=== PATIENT | male | born 1955 | race Caucasian/White ===

== ENCOUNTER 2021-10-26 17:03 | Observation (INO) | payer BC, MEDICARE ==
[~2021-10-26] VITALS: Ht 182.9 cm; Wt 131.5 kg
[~2021-10-26 17:03] MED LIST: ASPI-556 PO; ATOR10 PO; CETI10CA5 PO; DICL100T85 PO; OMEP20CA12 PO
[2021-10-26] MEDS ORDERED: ASPIRIN 325MG TAB PO ONE (20:30)
[2021-10-26] MEDS ORDERED: NITROGLYCERIN 1GM OINT 1 INCH/1GM TD ONE (20:30)
[2021-10-26 20:50] LABS: BASOPHILS % (AUTO) 0.4 % (0.0-5.0); EOSINOPHILS % (AUTO) 0.8 % (0.0-8.0); HEMATOCRIT 42.5 % (42-54); LYMPHOCYTES % (AUTO) 24.4 % (21.0-51.0); MEAN CORPUSCULAR HEMOGLOBIN 26.3 pg (27.0-33.0); MEAN CORPUSCULAR HGB CONC 31.5 g/dL (32.0-36.0); MEAN CORPUSCULAR VOLUME 83.5 fL (79-99); MONOCYTES % (AUTO) 8.7 % (3.0-13.0); NEUTROPHILS % (AUTO) 65.4 % (40.0-77.0); PLATELET COUNT (AUTO) 210 K/uL (130-400); RED BLOOD CELL COUNT(AUTO) 5.09 MIL/uL (4.50-6.20); WHITE BLOOD COUNT (AUTO) 7.4 K/uL (4.8-10.8)
[2021-10-26 21:07] LABS: CARBON DIOXIDE 33 mmol/L (21-32); CHLORIDE 100 mmol/L (101-111); CREATININE 0.9 mg/dL (0.5-1.5); GLOMERULAR FILTR. RATE CALC 89 mL/min (>60); GLUCOSE,RANDOM 102 mg/dL (70-105); POTASSIUM 4.1 mmol/L (3.5-5.1); SODIUM SERUM 139 mmol/L (136-145); UREA NITROGEN, BLOOD 18 mg/dL (7-18)
[2021-10-26 21:14] LABS: ALANINE AMINOTRANSFERASE 28 U/L (12-78); ALBUMIN 4.3 g/dL (3.5-5.0); ASPARTATE AMINOTRANSFERASE 20 U/L (10-37); BILIRUBIN,TOTAL 0.4 mg/dL (0.2-1.0); TOTAL PROTEIN, SERUM 7.8 g/dL (6.0-8.3)
[2021-10-26 21:17] LABS: CRP QUANTITATIVE < 2.00 mg/L (0.00-9.0)
[2021-10-26] MEDS ORDERED: MORPHINE 4 MG SYG IV PRN (22:00)
[2021-10-26] MEDS ORDERED: ACETAMINOPHEN 325 MG TAB PO PRN (22:00)
[2021-10-26] MEDS ORDERED: ONDANSETRON 4MG INJ IV PRN (22:00)
[2021-10-26] MEDS ORDERED: HYDROCODONE/ACETAMINOPHEN 5/325 MG TAB PO PRN (22:00)
[2021-10-26] MEDS: NITROGLYCERIN 1GM OINT 1 INCH/1GM TD SCH (22:00)
[2021-10-26 22:03] LABS: PROTHROMBIN TIME 10.9 SEC (9.6-11.6)
[2021-10-26 22:04] LABS: PARTIAL THROMBOPLASTIN TIME 29.5 SEC (26.3-35.5)
[2021-10-26] MEDS ORDERED: ATOR20TA65 PO (23:16)
[2021-10-26] MEDS ORDERED: TAMS-1 PO (23:17)
[2021-10-26] MEDS ORDERED: LOSA100T58 PO (23:18)
[2021-10-26] MEDS ORDERED: SERT-439 PO (23:19)
[2021-10-26] MEDS ORDERED: MONT-39 PO (23:21)
[2021-10-26] MEDS ORDERED: HYDR12.54 PO (23:21)
[2021-10-26 23:33] LABS: APPEARANCE,URINE CLEAR (CLEAR); BILIRUBIN,URINE NEGATIVE (NEGATIVE); COLOR,URINE YELLOW (YELLOW); GLUCOSE, URINE (UA) NEGATIVE (NEGATIVE); KETONES,URINE NEGATIVE (NEGATIVE); LEUKOCYTE ESTERASE ,URINE NEGATIVE (NEGATIVE); NITRATE,URINE NEGATIVE (NEGATIVE); OCCULT BLOOD,URINE NEGATIVE (NEGATIVE); PH,URINE 5.5 (5.0-8.0); PROTEIN,URINE NEGATIVE (NEGATIVE); UROBILINOGEN,URINE 0.2 mg/dL (0.2-1.0)
[2021-10-27 06:10] LABS: BASOPHILS % (AUTO) 0.6 % (0.0-5.0); EOSINOPHILS % (AUTO) 2.1 % (0.0-8.0); HEMATOCRIT 40.6 % (42-54); LYMPHOCYTES % (AUTO) 24.9 % (21.0-51.0); MEAN CORPUSCULAR HEMOGLOBIN 25.9 pg (27.0-33.0); MEAN CORPUSCULAR HGB CONC 31.5 g/dL (32.0-36.0); MONOCYTES % (AUTO) 9.6 % (3.0-13.0); NEUTROPHILS % (AUTO) 62.6 % (40.0-77.0); PLATELET COUNT (AUTO) 178 K/uL (130-400); RED BLOOD CELL COUNT(AUTO) 4.95 MIL/uL (4.50-6.20); RED CELL DISTRIBUTION WIDTH 13.9 % (11.0-15.5); WHITE BLOOD COUNT (AUTO) 5.3 K/uL (4.8-10.8)
[2021-10-27] MEDS: NITROGLYCERIN 1GM OINT 1 INCH/1GM TD SCH (06:19)
[2021-10-27 06:23] LABS: CREATININE 0.8 mg/dL (0.5-1.5); MAGNESIUM 1.9 mg/dL (1.80-2.40); PHOSPHORUS 4.1 mg/dL (2.5-4.9); POTASSIUM 3.6 mmol/L (3.5-5.1)
[2021-10-27] MEDS: ASPIRIN 81 MG EC TAB PO SCH (09:51)
[2021-10-27] MEDS: FAMOTIDINE 20MG VIAL IV SCH (09:53)
[2021-10-27] MEDS: ENOXAPARIN SODIUM 40 MG/0.4 ML SYRINGE SQ SCH (09:54)
[2021-10-27 10:26] LABS: THYROID STIMULATING HORMONE 1.56 uIU/mL (0.36-3.74)
[2021-10-27] MEDS: LOSARTAN 50 MG TABLET PO SCH ×2 (15:21→20:36)
[2021-10-27] MEDS ORDERED: TAMSULOSIN HCL 0.4 MG CAP.ER.24H PO SCH (21:00)
[2021-10-27] MEDS ORDERED: MONTELUKAST SODIUM 10 MG TAB PO SCH (21:00)
[2021-10-27] MEDS ORDERED: PANTOPRAZOLE 40 MG TAB DR PO SCH (21:00)
[2021-10-28 06:49] LABS: BASOPHILS % (AUTO) 0.3 % (0.0-5.0); EOSINOPHILS % (AUTO) 1.7 % (0.0-8.0); HEMATOCRIT 41.6 % (42-54); LYMPHOCYTES % (AUTO) 19.8 % (21.0-51.0); MEAN CORPUSCULAR HEMOGLOBIN 26.5 pg (27.0-33.0); MEAN CORPUSCULAR HGB CONC 31.7 g/dL (32.0-36.0); MEAN CORPUSCULAR VOLUME 83.4 fL (79-99); MONOCYTES % (AUTO) 8.9 % (3.0-13.0); NEUTROPHILS % (AUTO) 69.1 % (40.0-77.0); PLATELET COUNT (AUTO) 184 K/uL (130-400); RED BLOOD CELL COUNT(AUTO) 4.99 MIL/uL (4.50-6.20); RED CELL DISTRIBUTION WIDTH 14.2 % (11.0-15.5); WHITE BLOOD COUNT (AUTO) 5.8 K/uL (4.8-10.8)
[2021-10-28 06:56] LABS: CREATININE 0.8 mg/dL (0.5-1.5); POTASSIUM 4.1 mmol/L (3.5-5.1)
[2021-10-28] MEDS ORDERED: REGADENOSON 0.4 MG/5 ML PF SYG IVP SCH (08:30)
[2021-10-28] MEDS ORDERED: LOSARTAN 100 MG TABLET PO SCH (09:00)
[2021-10-28] MEDS ORDERED: ATORVASTATIN 20 MG TABLET PO SCH (09:00)
[2021-10-28] MEDS ORDERED: HYDROCHLOROTHIAZIDE 25 MG TABLET PO SCH (09:00)
[2021-10-28] MEDS ORDERED: SERTRALINE HCL 50 MG TABLET PO SCH (09:00)
[2021-10-28] MEDS: FAMOTIDINE 20MG VIAL IV SCH (10:25)
[2021-10-28] MEDS: ASPIRIN 81 MG EC TAB PO SCH (10:25)
[2021-10-28] MEDS: LOSARTAN 50 MG TABLET PO SCH (10:25)
[2021-10-28] MEDS: ENOXAPARIN SODIUM 40 MG/0.4 ML SYRINGE SQ SCH (10:33)
[2021-10-28 19:23] VITALS: BP 130/80
== END 2021-10-28 19:46 | disposition home or self-care (01) ==
LOC: EDH 17:03 → EDHIP 23:15
PROVIDERS: ADMIT Internal Medicine; ATTEND Internal Medicine
DX: R07.89 Other chest pain (principal); I24.9 Acute ischemic heart disease, unspecified; I10 Essential (primary) hypertension; E78.5 Hyperlipidemia, unspecified; K21.9 Gastro-esophageal reflux disease without esophagitis; E78.00 Pure hypercholesterolemia, unspecified; E66.9 Obesity, unspecified; Z79.82 Long term (current) use of aspirin; Z79.899 Other long term (current) drug therapy; Z87.891 Personal history of nicotine dependence
CPT/HCPCS: 36415 ×3; 71045; 78452; 80048 ×2; 80053; 80061; 81003; 83036; 83735 ×2; 84100; 84443; 84484 ×4; 85025 ×3; 85610; 85730; 86140; 93005; 93017; 96372 ×2; 96374; 96376; 99285; A9500 ×2; G0378 ×42; J1650 ×2; J2785; J3490 ×2

== ENCOUNTER → 2023-06-04 | Outpatient (CLI) | payer MEDICARE ==
[~2023-06-04] MED LIST changes: -ATOR10 PO; +ATOR20TA65 PO; -CETI10CA5 PO; -DICL100T85 PO; +HYDR12.54 PO; +LOSA100T59 PO; +MONT-39 PO; +SERT-439 PO; +TAMS-1 PO
== END | disposition home or self-care (01) ==
LOC: SHCH 14:24
PROVIDERS: ATTEND Internal Medicine Cardiovascular Disease
DX: I08.0 Rheumatic disorders of both mitral and aortic valves (principal); E78.5 Hyperlipidemia, unspecified; I11.9 Hypertensive heart disease without heart failure
CPT/HCPCS: 93306

== ENCOUNTER → 2025-07-14 | Emergency (ER) | payer MEDICARE ==
[~2025-07-14] VITALS: Ht 182.9 cm; Wt 131.5 kg
[~2025-07-14] MED LIST changes: -ASPI-556 PO; +ASPI-891 PO; +CYCL-309 PO; +FLUT16H NASAL; +GABA100C PO; +HYDR-4060 PO; -SERT-439 PO; +SERT-440 PO; -TAMS-1 PO; +TAMS-55 PO
--- NOTE | 2025-07-14 12:28 | HMCIMG ---
EXAM: CT Head Without IV contrast. CLINICAL HISTORY: CODE STROKE RIGHT SIDED WEAKNESS /T/ NUMBNRSS TECHNIQUE: Axial computed tomography images of the head/brain without intravenous contrast. COMPARISON: None provided. FINDINGS: BRAIN: No evidence of acute hemorrhage. No mass lesion. No CT evidence for acute territorial infarct. No midline shift or extra-axial collections. VENTRICLES: No hydrocephalus. ORBITS: The orbits are unremarkable. SINUSES AND MASTOIDS: The paranasal sinuses and mastoid air cells are clear. BONES: No fracture. SOFT TISSUES: Unremarkable. IMPRESSION: No acute intracranial abnormality. If there are concerns for an acute ischemic event, MRI brain with diffusion-weighted images may be useful for more complete evaluation. /[place]
--- NOTE | 2025-07-14 12:30 | EKG ---
[facility] Test Date: 2025-07-14 Test Time: 12:22:31 Pat Name: GUILLAUME WAYNE Department: ED Room: Gender: M [employer] Tester: [facility] : 1955 Requested By: ABIOLA PURCELL Order Number: [id number] Reading MD: Justin Adrian Measurements Intervals [place] Rate: 56 P: 36 OK: 275 QRS: -36 QRSD: 153 T: 17 QT: 466 QTc: 448 Interpretive Statements Sinus rhythm Prolonged OK interval Right bundle branch block Left ventricular hypertrophy Compared to ECG 07/11/2023 12:43:43 Right bundle-branch block now present Left ventricular hypertrophy now present Sinus bradycardia no longer present Electronically Signed On 07-15-2025 21:09:33 SOLUTION MANAGER by Justin Adrian Please click the below link to view image of tracing.
[2025-07-14 12:44] LABS: IMMATURE GRANULOCYTE ABSOLUTE 0.01 K/uL (0-1); NUCLEATED RED BLOOD CELLS 0.0 % (0.0-0.19); PLATELET COUNT (AUTO) 181 K/uL (130-400); RED BLOOD CELL COUNT(AUTO) 4.70 MIL/uL (4.50-6.20); RED CELL DISTRIBUTION WIDTH 14.1 % (11.0-15.5); WHITE BLOOD COUNT (AUTO) 5.6 K/uL (4.8-10.8)
[2025-07-14 12:54] LABS: CREATININE 0.8 mg/dL (0.5-1.3); GLOMERULAR FILTR. RATE CALC 94.0 mL/min (>90); GLUCOSE,RANDOM 81.0 mg/dL (70-105); SODIUM SERUM 137.0 mmol/L (136-145); UREA NITROGEN, BLOOD 16.0 mg/dL (7-18)
[2025-07-14 12:55] LABS: INR 1.03 (0.85-1.15)
--- NOTE | 2025-07-14 12:55 | ERN ---
General Chief Complaint: Stroke Symptoms Stated Complaint: STROKE SYMPTOMS Time Seen by MD: 12:03 Source: patient History of Present Illness Initial Comments Patient is a 70-year-old male coming in complaining of left-sided weakness. Patient states that this began four days ago. Per family member patient has been has been these symptoms progressively get worse. Allergies: Coded Allergies: No Known Drug Allergies (Unverified Allergy, Unknown, 08/06/14) Home Meds Active Scripts Hydrocodone/Acetaminophen (Hydrocodon-Acetaminophen 5-325) 5 Mg-325 Mg Tablet, 1-2 TAB PO Q6H PRN for MODERATE/SEVERE PAIN LEVEL, #56 TAB 0 Refills Prov:MARSHA WASHINGTON MD 07/16/23 Gabapentin (Neurontin) 100 Mg Capsule, 100 MG PO TID, #90 CAP 0 Refills Prov:MARSHA WASHINGTON MD 07/16/23 Cyclobenzaprine HCl (Cyclobenzaprine HCl) 10 Mg Tablet, 5 MG PO Q8H PRN for MUSCLE SPASMS, #45 TAB 0 Refills Prov:MARSHA WASHINGTON MD 07/16/23 Aspirin (Aspirin EC) 325 Mg Tablet., 325 MG PO DAILY, #30 TAB 0 Refills Prov:MARSHA WASHINGTON MD 07/16/23 Reported Medications Fluticasone Propionate (Flonase Nasal [place]) 50 Mcg/Actuation [place], 1 SPRAY NASAL AD PRN for NASAL CONGESTION, SPRAY 07/12/23 Sertraline HCl (Sertraline HCl) 100 Mg Tablet, 100 MG PO NOON, TAB 07/12/23 Hydrochlorothiazide (Hydrochlorothiazide) 12.5 Mg Tablet, 12.5 MG PO DAILY, TAB 10/26/21 Montelukast Sodium (Montelukast Sodium) 10 Mg Tablet, 10 MG PO NOON, TAB 10/26/21 Losartan Potassium (Losartan Potassium) 100 Mg Tablet, 100 MG PO DAILY, TAB 10/26/21 Tamsulosin HCl (Flomax) 0.4 Mg Cap.er.24h, 0.4 MG PO HS, CAPSULE. 10/26/21 Atorvastatin Calcium (Atorvastatin Calcium) 20 Mg Tablet, 20 MG PO HS, TAB 10/26/21 Omeprazole (Omeprazole) 20 Mg Capsule.dr, 20 MG PO AM, CAP 08/06/14 Past Medical History Past Medical History: COPD, High Cholesterol, Hypertension Past Surgical History: Other Surgical History Other: ABD HERNIA,LT KNEE REPLACEMENT Family History Family History: Negative Social History Social History: Negative ROS Dictation CONSTITUTIONAL: No chills, no fever, weakness, no diaphoresis, no malaise. HEAD/FACE: No signs of trauma. EENT: No eye pain, no blurred vision, no tearing, no double vision, no ear pain, no ear discharge, no nose pain, no nasal congestion, no throat pain, no throat swelling, no mouth pain. RESPIRATORY: No cough, no orthopnea, no SOB, no stridor, no wheezing. CARDIOVASCULAR: No chest pain, no edema, no palpitations, no syncope. GASTROINTESTINAL/ABDOMINAL: No abdominal pain, no constipation, no diarrhea, no nausea, no vomiting. GENITOURINARY: No abnormal discharge, no dysuria, no frequent urination, no hematuria. No complaints of pain in the genitals. MUSCULOSKELETAL: No back pain, no gout, no joint pain, no joint swelling, no muscle pain, no muscle stiffness, no neck pain. INTEGUMENTARY: No change in color, no change in hair/nails, no dryness, no lesion, no lumps, no rash. NEUROLOGICAL/PSYCH: No anxiety, not depressed, no emotional problem, no headache, no numbness, no pre-existing deficit, no history of seizures, no tremors, no weakness. HEMATOLOGIC/LYMPHATIC: Not anemic, no history of blood clots, no apparent bleeding, no bruising, glands not swollen. All Systems Negative, Except as Noted. Physical Exam Physical Exam Dictation VITAL SIGNS: Reviewed. GENERAL APPEARANCE: Alert, oriented x3, no acute distress, obese. HEAD AND FACE: Non-traumatic. EYES: PERRL, pink conjunctivas, eyelid no trauma, anterior chamber clear. EARS: Pinnas intact and no signs of trauma or erythema. Ear canals clear and no discharge. TMs no erythema. NOSE: No discharge, no bleeding. OROPHARYNX: Mouth normal, teeth no caries, tongue pink. Pharynx clear, no erythema. Tonsils no exudates, no abscesses noted. Mucous membrane moist. NECK: Supple, non-tender, no thyromegaly, no masses, no JVD, no bruits. BREAST: Deferred. CHEST: No tenderness, no crepitus, no paradoxical movement, no retractions. LUNGS: Clear, well-ventilated, symmetric, no rales, no wheezing, no rhonchi, no stridor, good breath sounds bilaterally. HEART: Regular rate, regular rhythm, no murmur, no gallops. VASCULAR: No peripheral edema. ABDOMEN: Soft, positive bowel sounds, nondistended, no guarding, nontender, no rebound, no masses no hepatomegaly, no splenomegaly, no Hook's sign, no hernias. RECTAL: Deferred. GENITAL: Deferred. NEUROLOGICAL: Normal speech, gross motor function intact, gross sensory function intact. MUSCULOSKELETAL: Neck nontender, full range of motion, back nontender, full range of motion. EXTREMITIES: Nontender, full range of motion. SKIN: Color pink, dry, no turgor, no rash, no lacerations, no abrasions, no contusions. LYMPHATICS: Deferred. NIH STROKE SCALE: NIH STROKE SCALE Response (Comments) Value Level of Consciousness Alert 0 Ask patient month and their age Answers both correct 0 Command to open eyes, make fist and let go Obeys both correct 0 Best gaze (horizontal eye movement) Normal 0 Visual Field Testing No Visual Field Loss 0 Facial Paresis Minor Paralysis 1 Motor Function - Left Arm Normal 0 Motor Function - Right Arm Some effort against grav. 2 Motor Function - Left Leg Normal 0 Motor Function - Right Leg Some effort against grav. 2 Limb Ataxia No Ataxia 0 Sensory-pin prick to arms, legs, trunk and face Normal 0 Best Language (describe picture, name items and read) No Aphasia 0 Dysarthria (read several words) Normal Articulation 0 Extinction and Inattention Normal 0 Total Results Laboratory and Microbiology Lab and Micro Result Laboratory Tests Test 07/14/25 12:11 07/14/25 12:37 07/14/25 13:04 Whole Blood Glucose 82 MG/DL (70-110) White Blood Count 5.6 K/uL (4.8-10.8) Red Blood Count 4.70 MIL/uL (4.50-6.20) Hemoglobin 12.3 g/dL (14.0-18.0) L Hematocrit 38.2 % (42-54) L Mean Corpuscular Volume 81.3 fL (79-99) Mean Corpuscular Hemoglobin 26.2 pg (27.0-33.0) L Mean Corpuscular Hemoglobin Concent 32.2 g/dL (32.0-36.0) Red Cell Distribution Width 14.1 % (11.0-15.5) Platelet Count 181 K/uL (130-400) Mean Platelet Volume 10.1 fL (7.5-10.5) Immature Granulocyte % (Auto) 0.2 % (0-1) Neutrophils (%) (Auto) 63.9 % (40.0-77.0) Lymphocytes (%) (Auto) 23.2 % (21.0-51.0) Monocytes (%) (Auto) 10.2 % (3.0-13.0) Eosinophils (%) (Auto) 2.0 % (0.0-8.0) Basophils (%) (Auto) 0.5 % (0.0-5.0) Neutrophils # (Auto) 3.6 K/uL (1.8-7.7) Lymphocytes # (Auto) 1.3 K/uL (1.0-4.8) Monocytes # (Auto) 0.6 K/uL (0.1-1.0) Eosinophils # (Auto) 0.11 K/uL (0.00-0.70) Basophils # (Auto) 0.03 K/uL (0.00-0.20) Absolute Immature Granulocyte (auto 0.01 K/uL (0-1) Nucleated Red Blood Cells 0.0 % (0.0-0.19) Prothrombin Time 10.9 SEC (9.6-11.6) Prothromb Time International Ratio 1.03 (0.85-1.15) Activated Partial Thromboplast Time 30.5 SEC (26.3-35.5) Sodium Level 137 mmol/L (136-145) Potassium Level 4.2 mmol/L (3.5-5.1) Chloride Level 100 mmol/L (101-111) L Carbon Dioxide Level 30 mmol/L (21-32) Blood Urea Nitrogen 16 mg/dL (7-18) Creatinine 0.8 mg/dL (0.5-1.3) Glomerular Filtration Rate Calc 94 mL/min (>90) Random Glucose 81 mg/dL (70-105) Total Calcium 8.7 mg/dL (8.5-10.1) Total Creatine Kinase 61 U/L (21-232) Troponin I High Sensitivity 16 ng/L (4-75) LDL Cholesterol 79 mg/dL (0-99) Urine Color LIGHT-YELLOW (YELLOW) Urine Appearance CLEAR (CLEAR) Urine pH 5.5 (5.0-8.0) Urine Specific [place] 1.015 (1.001-1.031) Urine Protein NEGATIVE mg/dL (NEGATIVE) Urine Glucose (UA) NEGATIVE mg/dL (NEGATIVE) Urine Ketones NEGATIVE mg/dL (NEGATIVE) Urine Occult Blood NEGATIVE (NEGATIVE) Urine Nitrate NEGATIVE (NEGATIVE) Urine Bilirubin NEGATIVE mg/dL (NEGATIVE) Urine Urobilinogen 0.2 mg/dL (0.2-1.0) Urine Leukocyte Esterase NEGATIVE Chel/uL MDM MDM: Differential diagnosis: CVA, TIA, Rationale: Tests considered and ordered secondary to shared decision making include: labs, ECG and radiology Previous outside records reviewed: Old ER visits. Risk of complication and/or morbidity or mortality of patient management: None Medications-Per medication reconciliation Need for hospitalization: Patient does meet criteria for hospitalization. Need for emergency major/minor surgery: No There are no social concerns with this patient. Prescription drug management Prescriptions will include symptomatic care Patient's prior external medical records from other ER visits were reviewed by me as indicated. Prior testing and results from previous visits were reviewed. Prior tests were taken into account with medical decision making and resource utilization, independent historian/historians were used to obtain complete medical history. I independently interpreted the test that were performed, results were reviewed by me and considered findings on radiology if ordered. Medical management and examination interpretation discussions were had by me with other qualified healthcare professionals as indicated for the patient's care. Patient is a 70-year-old male coming in complaining of right facial right upper and lower extremity numbness and weakness. NIH given was a five. Symptoms began one week ago slowly but progressively got worse. Patient was evaluated by teleneurologist their recommendation is a have patient evaluated for a stroke. Evaluation should consistent with stroke workup. Patient will be transferred to [facility] [place] under the care of Dr. Nieto. Report given. They accept patient ED Course Orders Procedure Category Date Status Time Cbc With Differential LAB 07/14/25 Complete 12:07 Prothrombin Time With LAB 07/14/25 Complete INR 12:07 Partial LAB 07/14/25 Complete Thromboplastin Time 12:07 Ct Head/Brain W/O CT 07/14/25 Resulted Contrast 12:07 Chest 1vw RAD 07/14/25 Resulted 12:07 12 Lead Ekg Tracing- EKG 07/14/25 Complete Technical 12:07 Creatine Kinase, Total LAB 07/14/25 Complete 12:07 Ldl Direct LAB 07/14/25 Complete 12:07 Troponin I High LAB 07/14/25 Complete Sensitivity 12:07 Urinalysis Profile LAB 07/14/25 Complete 12:07 Bedside Glucose CPOE 07/14/25 Transmitted Fingerstick 12:07 Basic Metabolic Panel LAB 07/14/25 Complete 12:07 Vital Signs Date Time Temp Pulse Resp B/P (MAP) Pulse Ox O2 Delivery O2 Flow Rate FiO2 07/14/25 14:50 99.0 54 12 149/122 98 Room Air* 0 21 07/14/25 12:37 99.0 53 11 163/118 97 Room Air* 0 21 07/14/25 12:02 97.9 58 18 190/77 97 0 DX & DISP Disposition: Transfer Decision to Admit Time: 15:28 Departure Impression: Primary Impression: CVA (cerebral vascular accident) Condition: Stable Referrals: JASON HART (PCP) ABIOLA PURCELL MD Jul 14, 2025 12:55
[2025-07-14 12:59] LABS: CREATINE KINASE, TOTAL 61.0 U/L (21-232); LDL DIRECT 79.0 mg/dL (0-99)
--- NOTE | 2025-07-14 13:07 | HMCIMG ---
EXAM: CR Chest, 1 View. CLINICAL HISTORY: stroke COMPARISON: None provided. FINDINGS: LUNGS: There is no mass, infiltrate, or acute pulmonary abnormality. PLEURAL SPACES: No pleural effusion or pneumothorax. MEDIASTINUM: Cardiac size and mediastinal contours within normal limits. BONES: No acute osseous abnormality. IMPRESSION: No acute cardiopulmonary pathology is evident. /[place]
[2025-07-14 13:30] LABS: APPEARANCE,URINE CLEAR (CLEAR); GLUCOSE, URINE (UA) NEGATIVE (NEGATIVE); LEUKOCYTE ESTERASE ,URINE NEGATIVE Leu/uL (NEGATIVE); NITRATE,URINE NEGATIVE (NEGATIVE); OCCULT BLOOD,URINE NEGATIVE (NEGATIVE)
[2025-07-14 13:37] LABS: ADD UA MICROSCOPIC NO
[2025-07-14 16:29] VITALS: BP 149/94; PULSE 54; RESP 14; TEMP 98.9; O2SAT 98
--- NOTE | 2025-07-14 16:50 | NUR ---
1640 REPORT GIVEN TO TOYA BURGER AT [facility] [place], TRANSFER PACKET GIVEN TO EMS TECH, PT HAS IV 20G TO LW INTACT AND PATENT. PT TOOK THIS CELL PHONE, AND GLASSES. PT TRANSFERRED VIA [facility].
== END ==
LOC: EDH 12:01
DX: I63.9 Cerebral infarction, unspecified (principal); E78.00 Pure hypercholesterolemia, unspecified; I10 Essential (primary) hypertension; J44.9 Chronic obstructive pulmonary disease, unspecified; Z79.82 Long term (current) use of aspirin; Z79.899 Other long term (current) drug therapy; Z96.652 Presence of left artificial knee joint
CPT/HCPCS: 36415; 70450; 71045; 80048; 81003; 82550; 82948; 83721; 84484; 85025; 85610; 85730; 93005; 99285